=== PATIENT | female | born 1965 | race Caucasian/White ===

== ENCOUNTER 2018-06-20 06:42 | Day surgery (SDC) | payer OTHER, BC ==
[2018-06-20] MEDS ORDERED: Sodium Chloride 0.9% 10 ML Syringe FLUSH PRN ×2 (07:23→11:31)
[2018-06-20] MEDS ORDERED: Lactated Ringers 1,000 ML IV SCH ×2 (07:23→11:31)
[2018-06-20] MEDS ORDERED: Propofol 200 MG/20 ML SDV IV ONE (08:00)
[2018-06-20] MEDS ORDERED: Ondansetron 4 MG/2 ML SDV IVPUSH ONE (08:00)
--- NOTE | 2018-06-20 08:24 | PCM.OPNOTE ---
- General Post-Op/Procedure Note Date of Surgery/Procedure: 06/20/18 Operative Procedure(s): c scope Findings: normal colon Pre Op Diagnosis: screening Post-Op Diagnosis: nl scope Anesthesia Technique: MAC Primary Surgeon: Nadeem Zamora Anesthesia Provider: Little Rodriguez Pathology: none Complications: None Condition: Good Free Text/Narrative:: see dictation
[2018-06-20] MEDS ORDERED: Metoclopramide 10 MG/2 ML SDV IVPUSH ONE (09:10)
--- NOTE | 2018-06-20 09:19 | OR ---
DATE OF OPERATION: 06/20/2018 SURGEON: Nadeem Zamora MD PROCEDURE PERFORMED: Colonoscopy. PREOPERATIVE DIAGNOSIS: Colon cancer screening. POSTOPERATIVE DIAGNOSIS: Normal colon. INDICATIONS FOR PROCEDURE: This is a 52-year-old white female who presents for initial screening colonoscopy. DESCRIPTION OF PROCEDURE: After an excellent IV sedation was administered, digital rectal exam was performed. No marked abnormality was noted. The flexible colonoscope was inserted and advanced without difficulty to the patient's cecum. The prep was excellent. It should be noted that she did mix a red-colored flavoring agent with her GoLYTELY, so therefore the effluent was tinged red in spots. We were able to completely irrigate this and get an excellent view of the intestine. Ascending colon was unremarkable. Transverse colon was unremarkable. Descending colon was unremarkable. Sigmoid and rectum were unremarkable. The colon was deflated as the scope was removed. The patient tolerated the procedure well and was taken to recovery room in a good condition. RECOMMENDATIONS: Repeat colonoscopy in 10 years. /[id number] KUSUM/MORTEZAL
== END 2018-06-20 10:25 | disposition home or self-care (01) ==
LOC: FB.SDS 06:42
PROVIDERS: ATTEND Surgery
DX: Z12.11 Encounter for screening for malignant neoplasm of colon (principal); J30.9 Allergic rhinitis, unspecified; F33.40 Major depressive disorder, recurrent, in remission, unspecified; Z79.899 Other long term (current) drug therapy
CPT/HCPCS: A9270-GY; J2405; J2704; J2765; J7120